=== PATIENT | female | born 1975 | race Caucasian/White ===

== ENCOUNTER 2016-10-21 22:51 | Observation (INO) | payer SELFPAY ==
--- NOTE | 2016-10-21 23:30 | ER Document Report ---
ED GI/ - General Mode of Arrival: Medic Information source: Patient - HPI Patient complains to provider of: Abdominal pain, Pelvic pain, Vaginal bleeding Onset: Other - Refer to HPI notes Location: LLQ, RLQ, Suprapubic Vaginal bleeding (Compared to normal period): Heavier Menstrual period history: Irregular Similar symptoms previously: Yes Recently seen / treated by doctor: No <VERNA VILLEDA - Last Filed: 10/22/16 00:29> <ANABELA HARRIS - Last Filed: 10/22/16 00:38> - General Chief Complaint: Abdominal Pain Stated Complaint: ABDOMINAL PAIN Time Seen by Provider: 10/21/16 23:10 Notes: Patient is a 40 year old female presenting to the emergency department via EMS for cramping and heavy vaginal bleeding. Patient has a history of Polycystic Ovarian Syndrome and has irregular menstrual periods. Patient states she usually has some cramping before her period and then she has heavy amounts of bleeding. Patient states 9 days ago she had severe cramping and 7 days ago she had vaginal bleeding that was worsened over the past 2 days. Patient states her cramping and pain is more severe than her normal cramping. Patient also complains of some dizziness/room spinning sensation, and shortness of breath. Patient is not in respiratory distress. Patient states she developed these symptoms around 22:00 just prior to arrival to the ED. Patient states she takes a natural substance DIM II (410 mg) for her PCOS. 2 years ago patient had a low hemoglobin of around 7.5, was given fluids at the facility where she was treated , and discharged. Patient followed up with [facility] and was prescribed hormones and told to lose weight; patient did not return to this facility did not follow the treatments that were prescribed. Patient is allergic to azithromycin. (VERNA VILLEDA) - Related Data Allergies/Adverse Reactions: azithromycin [From Zithromax] Allergy (Verified 10/21/16 23:26) Past Medical History - General Information source: Patient - Social History Smoking Status: Never Smoker Cigarette use (# per day): No Chew tobacco use (# tins/day): No Smoking Education Provided: No Frequency of alcohol use: None Drug Abuse: None Family History: None Patient has suicidal ideation: No Patient has homicidal ideation: No Renal/ Medical History: Reports: Hx Ovarian Cysts - Polycystic Ovarian Syndrome Surgical Hx: Negative <VERNA VILLEDA - Last Filed: 10/22/16 00:29> Review of Systems - Review of Systems Constitutional: No symptoms reported EENT: No symptoms reported Cardiovascular: See HPI, Dizziness Respiratory: No symptoms reported Gastrointestinal: See HPI, Abdominal pain Genitourinary: No symptoms reported Female Genitourinary: See HPI, Last menstrual period, Irregular period, Vaginal bleeding, Other - PCOS Musculoskeletal: No symptoms reported Skin: No symptoms reported Hematologic/Lymphatic: No symptoms reported Neurological/Psychological: No symptoms reported -: Yes All other systems reviewed and negative <VERNA VILLEDA - Last Filed: 10/22/16 00:29> Physical Exam - Vital signs Interpretation: Hypertensive, Tachycardic - mildly <VERNA VILLEDA - Last Filed: 10/22/16 00:29> <ANABELA HARRIS - Last Filed: 10/22/16 00:38> - Vital signs Vitals: Temp Pulse Resp BP Pulse Ox 98.3 F 106 H 16 143/67 H 96 10/21/16 23:19 10/21/16 23:19 10/21/16 23:19 10/21/16 23:19 10/21/16 23:19 - Notes Notes: GENERAL: Alert, interacts well, some increased dizziness with looking up/down/ right/left. Mild distress. HEAD: Normocephalic, atraumatic. EYES: Appear normal. Pupils equal, round, and reactive to light. Extraocular movements intact, no nystagmus. ENT: Moist mucus membranes, tongue midline. NECK: Full range of motion. Supple. Trachea midline. LUNGS: Clear to auscultation bilaterally, no wheezes, rales, or rhonchi. No respiratory distress. HEART: Regular rate and rhythm. No murmurs, gallops, or rubs. ABDOMEN: Morbidly obese. Diffuse lower abdominal tenderness bilaterally. Non- distended. Normal bowel sounds. EXTREMITIES: Moves all 4 extremities spontaneously. Normal strength. No edema. NEUROLOGICAL: Alert and oriented x3. Normal speech. No focal neurological deficits. GSC 15. PSYCH: Normal affect, normal mood. SKIN: Pale, warm, dry, normal turgor. (VERNA VILLEDA) Course - Laboratory Result Diagrams: 10/21/16 23:11 10/21/16 23:11 <VERNA VILELDA - Last Filed: 10/22/16 00:29> - Laboratory Result Diagrams: 10/21/16 23:11 10/21/16 23:11 - Consults Dr. Mchugh Time consulted: 00:20 Consulted provider: will see as inpatient <ANABELA HARRIS - Last Filed: 10/22/16 00:38> - Re-evaluation Re-evalutation: 10/22/16 00:36 The patient reports that her dizzy symptoms and sensation of the bed moving have improved quite a bit since taking the Antivert. (ANABELA HARRIS) - Vital Signs Vital signs: Temp Pulse Resp BP Pulse Ox 98.3 F 106 H 16 143/67 H 96 10/21/16 23:19 10/21/16 23:19 10/21/16 23:19 10/21/16 23:19 10/21/16 23:19 - Laboratory Laboratory results interpreted by me: 10/21/16 10/21/16 10/21/16 23:11 23:11 23:11 RBC 2.09 L Hgb 6.6 L Hct 19.4 L RDW 15.8 H Seg Neutrophils % 78.9 H Glucose 260 H Hemoglobin A1c % Urine Protein 30 H Urine Glucose (UA) 50 H Urine Ketones 20 H Urine Blood LARGE H Urine Urobilinogen 2.0 H Ur Leukocyte Esterase SMALL H Urine Ascorbic Acid 40 H Crossmatch 10/21/16 10/22/16 23:11 00:05 RBC Hgb Hct RDW Seg Neutrophils % Glucose Hemoglobin A1c % 6.2 H Urine Protein Urine Glucose (UA) Urine Ketones Urine Blood Urine Urobilinogen Ur Leukocyte Esterase Urine Ascorbic Acid Crossmatch See Detail Discharge <VERNA VILLEDA - Last Filed: 10/22/16 00:29> - Discharge Admitting Provider: [facility] Admitted: Labor and Delivery <ANABELA HARRIS - Last Filed: 10/22/16 00:38> - Discharge Clinical Impression: Menometrorrhagia, Acute blood loss anemia, Vertigo Diabetes Qualifiers: Diabetes mellitus type: type 2 Diabetes mellitus complication status: without complication Diabetes mellitus terminal system operator insulin use: without terminal system operator use Qualified Code(s): E11.9 - Type 2 diabetes mellitus without complications Condition: Stable Disposition: ADMITTED INPATIENT Scribe Attestation: 10/22/16 00:26 I personally performed the services described in the documentation, reviewed and edited the documentation which was dictated to the scribe in my presence, and it accurately records my words and actions. (ANABELA HARRIS) Scribe Documentation - Scribe Written by Scribe:: Carmine Petty 10/21/2016 00:08 acting as scribe for :: Ivy <VERNA VILLEDA - Last Filed: 10/22/16 00:29>
[2016-10-21 23:38] LABS: ABSOLUTE BASOPHILS # (AUTO) 0.1 10^3/uL (0.0-0.2); ABSOLUTE EOSINOPHILS # (AUTO) 0.1 10^3/uL (0.0-0.6); ABSOLUTE LYMPHOCYTES (AUTO) 1.6 10^3/uL (0.5-4.7); ABSOLUTE MONOCYTES (AUTO) 0.4 10^3/uL (0.1-1.4); ABSOLUTE NEUT (AUTO) 8.1 10^3/uL (1.7-8.2); BASOPHILS % (AUTO) 0.8 % (0-2); EOSINOPHILS % (AUTO) 0.7 % (0-6); HEMATOCRIT 19.4 % (36.0-47.0); HGB HCT DIFFERENCE 0.4; LYMPHOCYTES % (AUTO) 15.2 % (13-45); MEAN CORPUSCULAR HEMOGLOBIN 31.3 pg (27.0-33.4); MEAN CORPUSCULAR HGB CONC 33.9 g/dL (32.0-36.0); MEAN CORPUSCULAR VOLUME 93 fl (80-97); MONOCYTES % (AUTO) 4.4 % (3-13); RED BLOOD COUNT 2.09 10^6/uL (3.72-5.28); RED CELL DISTRIBUTION WIDTH 15.8 % (11.5-14.0); SEGMENTED NEUTROPHILS % (AUTO) 78.9 % (42-78); WHITE BLOOD COUNT 10.2 10^3/uL (4.0-10.5)
[2016-10-21 23:42] LABS: AMORPHOUS SEDIMENT,URINE TRACE /HPF; APPEARANCE,URINE CLOUDY; BILIRUBIN,URINE NEGATIVE (NEGATIVE); CALCIUM OXALATE CRYSTALS,URINE TOO NUMEROUS TO CNT /HPF; GLUCOSE, URINE 50 mg/dL (NEGATIVE); KETONES,URINE 20 mg/dL (NEGATIVE); LEUKOCYTE ESTERASE,URINE SMALL (NEGATIVE); NITRITE,URINE NEGATIVE (NEGATIVE); PROTEIN,URINE 30 mg/dL (NEGATIVE); URINE SPECIFIC GRAVITY 1.028
[2016-10-21 23:48] LABS: HEMOGLOBIN 6.6 g/dL (12.0-15.5)
[2016-10-21] MEDS ORDERED: KETOROLAC TROMETHAMINE INJ/PF 30 MG/1 ML SDV IV ONE (23:48)
[2016-10-21] MEDS ORDERED: MECLIZINE HCL 25 MG TABLET PO ONE (23:48)
[2016-10-21] MEDS ORDERED: NORMAL SALINE 1000 ML 1,000 ML IV ONE (23:48)
[2016-10-21 23:50] LABS: ALANINE AMINOTRANSFERASE 35 U/L (9-52); ALBUMIN 3.6 g/dL (3.5-5.0); ALKALINE PHOSPHATASE 109 U/L (38-126); ANION GAP 12 (5-19); ASPARTATE AMINO TRANSFERASE 34 U/L (14-36); BILIRUBIN,DIRECT 0.4 mg/dL (0.0-0.4); BILIRUBIN,TOTAL 0.6 mg/dL (0.2-1.3); BLOOD UREA NITROGEN 13 mg/dL (7-20); CALCIUM 8.5 mg/dL (8.4-10.2); CARBON DIOXIDE 22 mmol/L (22-30); CHLORIDE 105 mmol/L (98-107); CREATININE RESULT 0.85 mg/dL (0.52-1.25); GLUCOSE 260 mg/dL (75-110); POTASSIUM 4.5 mmol/L (3.6-5.0); SODIUM 138.5 mmol/L (137-145); TOTAL PROTEIN 6.9 g/dL (6.3-8.2)
[2016-10-21] MEDS ORDERED: NORMAL SALINE 250 ML IV PRN (23:50)
[2016-10-22] MEDS ORDERED: MEDROXYPROGESTERONE ACET 10 MG TABLET PO ONE (00:16)
[2016-10-22] MEDS ORDERED: ESTROGENS,CONJUGATED 25 MG VIAL IV ONE (00:23)
[2016-10-22] MEDS ORDERED: ESTROGENS,CONJUGATED 25 MG VIAL ONE (01:52)
[2016-10-22] MEDS ORDERED: ESTROGENS,CONJUGATED 25 MG VIAL IV PRN (04:16)
--- NOTE | 2016-10-22 06:14 | PDOC H&P ---
History of Present Illness Admission Date/PCP: 10/22/16 00:30 Patient complains of: heavy menses, lightheaded, dizziness History of Present Illness: GLADYS NIETO is a 40 year old female who complains of a long history of heavy menses since menarche at 12 yo. In last few years has become heavier and associated with anemia. Was diagnosed with PCOS in her twenties. This episode of bleeding was heavier than normal necessitating 50 super plus tampons with pads at the same time and still bleeding through. Indicates this is the heaviest menses she's ever had. Last night began experiencing vertigo and feeling lightheaded to the point of "passing out" Past Medical History LMP: 10/17/2016 Gynecological Infection: No Obstetrical History: none Psychiatric Medical History: Reports: Depression - no meds Past Surgical History Past Surgical History: rhinoplasty Social History Smoking Status: Never Smoker Frequency of Alcohol Use: None Hx Recreational Drug Use: No Hx Prescription Drug Abuse: No Family History Family History: None, Other Family History: mother with colon cancer recently Parental Family History Reviewed: Yes Children Family History Reviewed: NA Sibling(s) Family History Reviewed.: NA Medication/Allergy Allergies/Adverse Reactions: azithromycin [From Zithromax] Allergy (Verified 10/21/16 23:26) Review of Systems Constitutional: PRESENT: as per HPI Gastrointestinal: PRESENT: diarrhea Genitourinary: PRESENT: as per HPI Physical Exam - Physical Exam Vital Signs: Temp Pulse Resp BP Pulse Ox 98.0 F 97 18 143/80 H 100 10/22/16 05:57 10/22/16 05:57 10/22/16 05:57 10/22/16 05:57 10/22/16 05:57 Intake & Output 10/20/16 10/21/16 10/22/16 06:59 06:59 06:59 Intake Total 500 Balance 500 General appearance: PRESENT: no acute distress, morbidly obese GI/Abdominal exam: PRESENT: soft - Gynecological Exam Labia: normal Assessment & Plan - Diagnosis (2) Diabetes Qualifiers: Diabetes mellitus type: type 2 Diabetes mellitus complication status: without complication Diabetes mellitus terminal manager insulin use: without correction use Qualified Code(s): E11.9 - Type 2 diabetes mellitus without complications Is this a current diagnosis for this admission?: Yes (3) Menometrorrhagia Is this a current diagnosis for this admission?: Yes (4) Vertigo Is this a current diagnosis for this admission?: Yes - Time Time Spent: 30 to 50 Minutes Critical Time spent with patient: Less than 15 minutes Medications reviewed and adjusted accordingly: Yes Anticipated discharge: Home Within: within 24 hours - Inpatient Certification Medical Necessity: Other - need for blood transfusion and IV estrogen - Plan Summary Plan Summary: will transfuse patient to get hgb up and stop bleeding with iv estrogen. Have patient get pelvic sono and EMB in office with me in 2 wks. will initiate Metformin for diabetes as this is new diagnosis for the patient and she was unaware of her diabetic status. Pt will need to have colonoscopy. buttermaker helper plan for hysterectomy as long as emb/sono show no pathology. this can be arranged outpatient.
[2016-10-22] MEDS ORDERED: METFORMIN HCL 500 MG TABLET PO SCH (08:00)
--- NOTE | 2016-10-22 08:05 | PDOC PROGRESS REPORT ---
Subjective Subjective:: Pt reports feeling better today No vaginal bleeding Wants to stop the Metformin, because "i get every side effect imaginable" when she takes it Physical Exam - Physical Exam Vital Signs: Temp Pulse Resp BP Pulse Ox 97.8 F 96 18 145/82 H 99 10/22/16 07:04 10/22/16 07:04 10/22/16 07:04 10/22/16 07:04 10/22/16 07:04 Intake & Output 10/21/16 10/22/16 10/23/16 06:59 06:59 06:59 Intake Total 500 350 Balance 500 350 General appearance: PRESENT: no acute distress, cooperative, obese - Gynecological Exam Labia: normal Assessment & Plan - Diagnosis (2) Diabetes Qualifiers: Diabetes mellitus type: type 2 Diabetes mellitus complication status: without complication Diabetes mellitus termite control service representative insulin use: without termite control service representative use Qualified Code(s): E11.9 - Type 2 diabetes mellitus without complications Is this a current diagnosis for this admission?: Yes (3) Menometrorrhagia Is this a current diagnosis for this admission?: Yes - Plan Summary Plan Summary: Have patient get pelvic sono and EMB in office with me in 2 wks. intermodal truck driver plan for hysterectomy as long as emb/sono show no pathology. this can be arranged outpatient. Await cbc results prior to d/c home
[2016-10-22] MEDS ORDERED: ESTROGENS CONJUGATED IV SCH (09:00)
[2016-10-22] MEDS ORDERED: NORMAL SALINE IV SCH (09:00)
[2016-10-22] MEDS ORDERED: ESTROGENS,CONJUGATED 25 MG VIAL IV SCH (09:00)
[2016-10-22 09:01] VITALS: BP 131/64
[2016-10-22] MEDS ORDERED: KETOROLAC TROMETHAMINE INJ/PF 30 MG/1 ML SDV IV PRN (10:43)
[2016-10-22 11:37] LABS: HEMATOCRIT 24.3 % (36.0-47.0); HGB HCT DIFFERENCE -0.3; MEAN CORPUSCULAR HEMOGLOBIN 29.5 pg (27.0-33.4); MEAN CORPUSCULAR HGB CONC 32.8 g/dL (32.0-36.0); MEAN CORPUSCULAR VOLUME 90 fl (80-97); RED CELL DISTRIBUTION WIDTH 15.5 % (11.5-14.0); WHITE BLOOD COUNT 11.7 10^3/uL (4.0-10.5)
== END 2016-10-22 14:00 | disposition home or self-care (01) ==
LOC: ER 22:51 → EH 10-22 00:30 → UNDOADMOB 10-22 01:11 → INTOOBSV 10-22 01:11 → EH 10-22 01:11 → 2S 10-22 02:58 → EH 10-22 02:58 → 2S 10-22 02:58
PROVIDERS: ADMIT Obstetrics & Gynecology; ATTEND Obstetrics & Gynecology
PROC: 30233N1 Transfusion of Nonautologous Red Blood Cells into Peripheral Vein, Percutaneous Approach (ICD-10-PCS; principal; 2016-10-22)
DX: N92.1 Excessive and frequent menstruation with irregular cycle (principal); R42 Dizziness and giddiness; E11.9 Type 2 diabetes mellitus without complications; E28.2 Polycystic ovarian syndrome; D62 Acute posthemorrhagic anemia; R19.7 Diarrhea, unspecified; E66.01 Morbid (severe) obesity due to excess calories; Z80.0 Family history of malignant neoplasm of digestive organs; Z68.44 Body mass index [BMI] 60.0-69.9, adult
CPT/HCPCS: 99285; 96360; 86900; 86901; 36415 ×2; 36430; 86850; 85025; 85027; 80053; 81001; 83036; 86920; G0378; P9016; J1410; J1885; J7030